=== PATIENT | female | born 1990 | race American Indian/Alaskan Native ===

== ENCOUNTER 2016-09-24 22:20 | Outpatient (CLI) | payer MEDICAID ==
[2016-09-24] MEDS ORDERED: LACTATED RINGERS 500 ML IV ONE (22:58)
== END 2016-09-25 00:57 | disposition home or self-care (01) ==
LOC: TRG 22:20
PROVIDERS: ATTEND Specialist
DX: O36.8130 Decreased fetal movements, third trimester, not applicable or unspecified (principal); O62.0 Primary inadequate contractions; W19.XXXA Unspecified fall, initial encounter; Y93.89 Activity, other specified; Y92.89 Other specified places as the place of occurrence of the external cause; Y99.8 Other external cause status; Z3A.38 38 weeks gestation of pregnancy
CPT/HCPCS: 96360; J7120